=== PATIENT | female | born 1950 | race Caucasian/White ===

== ENCOUNTER → 2020-07-08 10:07 | Outpatient (BNVA) | payer OTHER, SELFPAY | PROVIDERS: Family Provider Emergency Medicine; PCP Emergency Medicine; Visit Provider Nurse Practitioner Family | DX: L03.032 Cellulitis of left toe (principal); E11.9 Type 2 diabetes mellitus without complications | CPT/HCPCS: 73630 ==

== ENCOUNTER → 2020-09-02 15:55 | Outpatient (BNVA) | payer OTHER, SELFPAY | PROVIDERS: Family Provider Emergency Medicine; PCP Emergency Medicine; Visit Provider Nurse Practitioner Family | DX: M79.605 Pain in left leg (principal); T87.89 Other complications of amputation stump; Z89.512 Acquired absence of left leg below knee | CPT/HCPCS: 73590 ==

== ENCOUNTER → 2020-10-22 14:40 | Outpatient (BNVA) | payer OTHER, SELFPAY | PROVIDERS: Family Provider Emergency Medicine; PCP Emergency Medicine; Visit Provider Nurse Practitioner Family | DX: Z20.828 Contact with and (suspected) exposure to other viral communicable diseases (principal); J11.1 Influenza due to unidentified influenza virus with other respiratory manifestations | CPT/HCPCS: 87400; 87635 ==